=== PATIENT | female | born 1995 | race Asian ===

== ENCOUNTER 2018-08-24 20:06 | Emergency (ER) | payer SELFPAY ==
[2018-08-24 20:13] VITALS: BP 123/75; PULSE 99; TEMP 97.7; BMI 28.2
--- NOTE | 2018-08-24 20:47 | PDOC ---
History of Present Illness - General Chief Complaint: Rectal Bleed Stated Complaint: BLOOD IN STOOL Time Seen by Provider: 08/24/18 20:20 History Source: Patient Exam Limitations: No Limitations - History of Present Illness Initial Comments: 08/24/18 20:41 Pt is a 22yo F with PMH of cholecystectomy presenting to ED with complaints of 1 week of rectal bleeding with cramping. Pt says she has been having lower abdominal cramping with painless BRBPR. She has never had this before. She said she vomited (nbnb) yesterday after looking at the blood but otherwise denies n/v /d or constipation. She denies hematuria or urinary symptoms. She denies fevers , chills, chest pain, lightheadedness, syncope, palpitations, vaginal bleeding, vaginal discharge. LMP was 1 month ago. She denies taking NSAIDS or iron pills. PMD: Ben Gamez PMH: none PSH: cholecystectomy Meds: none Allergies: nkda Social: denies Past History - Past Medical History Allergies/Adverse Reactions: Allergies Allergy/AdvReac Type Severity Reaction Status Date / Time No Known Allergies Allergy Verified 08/24/18 20:12 Home Medications: Ambulatory Orders NK [No Known Home Medication] 08/24/18 COPD: No - Immunization History Immunization Up to Date: Yes - Suicide/Smoking/Psychosocial Hx Smoking Status: No Smoking History: Never smoked Have you smoked in the past 12 months: No Number of Cigarettes Smoked Daily: 0 Information on smoking cessation initiated: No Hx Alcohol Use: No Drug/Substance Use Hx: No Substance Use Type: None Review of Systems - Review of Systems Constitutional: No: Symptoms Reported HEENTM: No: Symptoms Reported Respiratory: No: Symptoms reported Cardiac (ROS): No: Symptoms Reported ABD/GI: Yes: See HPI, Rectal Bleeding, Vomiting, Abdominal cramping. No: Abdominal Distended, Abd. Pain w/ defecation, Constipated, Diarrhea, Nausea : No: Burning, Dysuria, Hematuria Musculoskeletal: No: Symptoms Reported Integumentary: No: Symptoms Reported Neurological: No: Symptoms reported *Physical Exam - Vital Signs Last Vital Signs Temp Pulse Resp BP Pulse Ox 97.7 F 99 H 16 123/75 100 08/24/18 20:10 08/24/18 20:10 08/24/18 20:10 08/24/18 20:10 12/09/18 20:10 - Physical Exam General Appearance: Yes: Nourished, Appropriately Dressed. No: Apparent Distress HEENT: positive: EOMI, CLARIBEL, Normal ENT Inspection, Other (normal conjunctiva) Neck: positive: Trachea midline, Supple Respiratory/Chest: positive: Lungs Clear, Normal Breath Sounds Cardiovascular: positive: Regular Rhythm, Regular Rate, S1, S2. negative: Edema , JVD Vascular Pulses: Carotid (R): 2+, Carotid (L): 2+, Dorsalis-Pedis (R): 2+, Doralis-Pedis (L): 2+ Gastrointestinal/Abdominal: positive: Normal Bowel Sounds, Soft. negative: Rebound, Tenderness, Hernia Rectal Exam: positive: heme negative stool, normal rectal tone, hemorrhoids ( external hemarrhoid at 3o'clock position. nonthrombosed, nontender around 1-2cm) Musculoskeletal: negative: CVA Tenderness Extremity: positive: Normal Capillary Refill Integumentary: positive: Normal Color, Dry, Warm Neurologic: positive: domain architect II-XII NML intact, Fully Oriented, Alert, Normal Mood/ Affect, Normal Response, Motor Strength 5/5 Moderate Sedation - Procedure Monitoring Vital Signs: Procedure Monitoring Vital Signs Temperature 97.7 F 08/24/18 20:10 Pulse Rate 99 H 08/24/18 20:10 Respiratory Rate 16 08/24/18 20:10 Blood Pressure 123/75 08/24/18 20:10 O2 Sat by Pulse Oximetry (%) 100 08/24/18 20:10 ED Treatment Course - LABORATORY CBC & Chemistry Diagram: 08/24/18 22:00 08/24/18 22:00 Medical Decision Making - Medical Decision Making 08/24/18 20:45 Pt is a 22yo F with PMH of cholecystectomy presenting to ED with complaints of 1 week of rectal bleeding with cramping. Pt says she has been having lower abdominal cramping with painless BRBPR. She has never had this before. She said she vomited (nbnb) yesterday after looking at the blood but otherwise denies n/v /d or constipation. She denies hematuria or urinary symptoms. She denies fevers , chills, chest pain, lightheadedness, syncope, palpitations, vaginal bleeding, vaginal discharge. LMP was 1 month ago. She denies taking NSAIDS or iron pills. Vitals: HR 99 otherwise wnl PE: external hemorrhoid, nonthrombosed. Ddx includes but not limited to: GI bleed (upper v. lower), malignancy, diverticulitis, diverticulosis, fistula, polyp, hemorrhoid, Pt not experiencing symptoms. borderline tachycardia. Will order cbc, cmp, stool occult. 08/24/18 21:40 Stool occult negative. All labs wnl: Normal h/h. pt is asymptomatic. has pmd follow up. can be dc home. given referral to surgery if she wants hemorrhoid removed. no medications needed as this time, painless hemorrhoid. *DC/Admit/Observation/Transfer Diagnosis at time of Disposition: Hemorrhoid Qualifiers: Hemorrhoid type: unspecified Qualified Code(s): K64.9 - Unspecified hemorrhoids - Discharge Dispostion Disposition: HOME Condition at time of disposition: Good - Referrals Referrals: Ben Gamez MD [Primary Care Provider] - - Patient Instructions Printed Discharge Instructions: DI for Hemorrhoids, DI for Rectal Bleeding Additional Instructions: You were seen here today for rectal bleeding. It looks like you have a hemorrhoid. Hemorrhoids can cause blood in the stool. I recommend you eat a high fiber diet, you can take Miralax if needed. There area also over the counter hemorrhoid creams you can apply. I also recommend you see your primary care doctor in the next few days for further evaluation and management. You can see a surgeon if you want it removed: Dr. Gutierres Come back to the emergency room if you develop worsening pain, you feel lightheaded, you start vomiting, you have nausea, you pass out or if any new concerning symptom develops. Thank you - Post Discharge Activity
--- NOTE | 2018-08-24 21:31 | PDOC ---
Attending Attestation - HPI HPI: This patient is a 22 year old female with PMHx of cholecystectomy , who presents with 1 week of abdominal cramping and blood per rectum. Patient reports painless bowel movements but reports bright red blood in her stool. LMP 1 month ago. She denies any diarrhea or constipation. Denies any nausea or vomiting. PMD: Ben Gamez Past Surgical Hx: cholecystectomy 08/24/18 21:38 <Sarah Caceres - Last Filed: 08/24/18 21:38> - Resident Resident Name: Umu Sherman - ED Attending Attestation I have performed the following: I have examined & evaluated the patient, The case was reviewed & discussed with the resident, I agree w/resident's findings & plan, Exceptions are as noted - HPI HPI: 08/24/18 21:30 22 yo female reports streaks of red blood on her stool Denies fever,chills,nausea,vomiting or diarrhea - Physicial Exam PE: 08/24/18 22:04 petite 22 yo female p/w rectal bleeding with defecation head ncat neck supple lungs cta b/l cvs [id number] abd nontender extremities motor strength 5/5 skin warm and dry neuro [id number] ,ambulatory rectal exam reveals 1.2 cm non-thrombosed external hemorrhoid - Medical Decision Making 08/24/18 22:25 neg preg test no anemia, no blood appreciated on hemocult,benign abd exam,normal rectal tone, no tenesmus,no diarrhea 08/24/18 22:45 imp ext hemorrhoid plan followup with PCP,hemorrhoid ointments <Qi Luke - Last Filed: 08/24/18 22:46>
[2018-08-24 22:05] LABS: BASO % 0.7 % (0-2.0); EOS % 1.6 % (0-4.5); HEMATOCRIT 40.8 % (32.4-45.2); HEMOGLOBIN 13.9 GM/dL (10.7-15.3); LYMPH % 25.8 % (8-40); MCHC 34.1 g/dl (32.0-36.0); MONO % 6.8 % (3.8-10.2); NEUT % 65.1 % (42.8-82.8); PLATELET COUNT 305 K/MM3 (134-434); RBC 4.63 M/mm3 (3.60-5.2); RDW 13.5 % (11.6-15.6); WHITE BLOOD COUNT 10.5 K/mm3 (4.0-10.0)
[2018-08-24 22:08] LABS: URINE APPEARANCE CLEAR; URINE BILIRUBIN NEGATIVE (<2.0 mg/dL); URINE COLOR YELLOW; URINE GLUCOSE (UA) NEGATIVE (NEGATIVE); URINE KETONE NEGATIVE (NEGATIVE); URINE LEUK ESTERASE NEGATIVE (NEGATIVE); URINE NITRITE NEGATIVE (NEGATIVE); URINE PROTEIN NEGATIVE (NEGATIVE)
[2018-08-24 22:10] LABS: HCG,QUALITATIVE URINE Negative
[2018-08-24 22:42] LABS: ALBUMIN 3.9 g/dl (3.4-5.0); ALK PHOS 56 U/L (45-117); ANION GAP 7 MMOL/L (8-16); BILIRUBIN,TOTAL 0.2 mg/dL (0.2-1); BLOOD UREA NITROGEN 11 mg/dL (7-18); CALCIUM 8.5 mg/dL (8.5-10.1); CHLORIDE 105 mmol/L (98-107); CO2 27 mmol/L (21-32); CREATININE 0.8 mg/dL (0.55-1.3); GLUCOSE,RANDOM 126 mg/dL (74-106); POTASSIUM 4.2 mmol/L (3.5-5.1); SGOT/AST 10 U/L (15-37); SGPT/ALT 21 U/L (13-61); SODIUM 140 mmol/L (136-145); TOT PROT 7.2 g/dl (6.4-8.2)
== END 2018-08-24 23:00 | disposition home or self-care (01) ==
LOC: JER 20:06
DX: K64.9 Unspecified hemorrhoids (principal)
CPT/HCPCS: 36415; 80053; 81003; 82272; 84703; 85025; 99284-25